=== PATIENT | female | born 1960 | race Two or more races ===

== ENCOUNTER → 2020-11-06 | Outpatient (CLI) | payer OTHER ==
[~2020-11-06] MED LIST: SINGULAIR 10MG10 MG PO
== END | disposition home or self-care (01) ==
LOC: MAMO-SONO 12:45
PROVIDERS: ATTEND Obstetrics & Gynecology Gynecology
DX: R10.2 Pelvic and perineal pain (principal); N60.11 Diffuse cystic mastopathy of right breast; N60.12 Diffuse cystic mastopathy of left breast

== ENCOUNTER 2023-03-14 18:39 | Emergency (ER) | payer OTHER ==
[~2023-03-14] VITALS: Ht 167.6 cm; Wt 80.7 kg
[2023-03-14] MEDS ORDERED: PROVENTIL HFA6.7 GM (20:19)
[2023-03-15 04:04] LABS: HEMATOCRIT 36.7 % (36.0-45.00); HEMOGLOBIN 12.4 g/dL (12.0-15.00); MEAN CELL VOLUME 89.1 fL (80.00-100.00); MEAN CORPUSCULAR HEMOGLOBIN 30.1 pg (27.00-32.0); MEAN CORPUSCULAR HGB CONC 33.8 g/dl (32.0-36.0); PLATELET COUNT 177 K/uL (150-450); RED BLOOD COUNT 4.12 M/uL (4.00-6.00); RED CELL DISTRIBUTION WIDTH 13.5 % (11.5-14.5)
== END 2023-03-15 05:27 | disposition home or self-care (01) ==
LOC: ER 18:39
DX: R53.81 Other malaise (principal); J06.9 Acute upper respiratory infection, unspecified; Z20.822 Contact with and (suspected) exposure to COVID-19

== ENCOUNTER 2024-10-15 12:47 | Emergency (ER) | payer OTHER ==
[~2024-10-15] VITALS: Ht 167.6 cm; Wt 80.7 kg
[~2024-10-15 12:47] MED LIST changes: +PROVENTIL HFA6.7 GM
[2024-10-15] MEDS ORDERED: KETOROLAC TROMETHAMINE 30 MG VIAL IV ONE (15:15)
[2024-10-15] MEDS ORDERED: ALBUTEROL SULFATE 0.5 ML/2.5 MG SOLUTION IH ONE (15:30)
[2024-10-15 15:53] LABS: BASO % 0.5 % (0.1-1.2); EOS # 0.26 (0.04-0.54); EOS % 4.3 % (0.7-7.0); LYMPH # 1.79 (1.18-3.74); LYMPH % 29.8 % (19.3-53.1); MEAN PLATELET VOLUME 11.00 fl (9.4-12.4); MONO # 0.59 (0.24-0.82); MONO % 9.8 % (4.7-12.5); NEUT # 3.32 (1.56-6.13); NEUT % 55.4 % (34.0-71.1); RED CELL DISTRIBUTION WIDTH 13.2 % (11.6-14.4)
[2024-10-15 16:31] LABS: COVID-19 AG NEGATIVE (NEGATIVE)
[2024-10-15] MEDS ORDERED: ADVIL DUAL ACT1 EACH PO (17:47)
== END 2024-10-16 10:42 | disposition home or self-care (01) ==
LOC: ER 12:47
PROVIDERS: Preventive Medicine Public Health & General Preventive Medicine
DX: J45.909 Unspecified asthma, uncomplicated (principal); R07.89 Other chest pain; R05.9 Cough, unspecified; Z20.822 Contact with and (suspected) exposure to COVID-19
CPT/HCPCS: 36415; 71046; 94640; 96365; 99283; J1885